=== PATIENT | female | born 1930 | race Caucasian/White ===

== ENCOUNTER 2019-02-10 19:30 | Outpatient (CLI) | payer MEDICARE | END 2019-02-10 19:31 | disposition home or self-care (01) | LOC: SLEEPLAB 19:30 | PROVIDERS: ATTEND Family Medicine | DX: G47.33 Obstructive sleep apnea (adult) (pediatric) (principal); G51.9 Disorder of facial nerve, unspecified; G47.10 Hypersomnia, unspecified; G47.9 Sleep disorder, unspecified; R53.83 Other fatigue; R06.83 Snoring; F41.8 Other specified anxiety disorders; G47.00 Insomnia, unspecified; I10 Essential (primary) hypertension; G47.61 Periodic limb movement disorder | CPT/HCPCS: 95810 ==

== ENCOUNTER 2019-03-15 20:30 | Outpatient (CLI) | payer MEDICARE | END 2019-03-15 20:31 | disposition home or self-care (01) | LOC: SLEEPLAB 20:30 | PROVIDERS: ATTEND Family Medicine | DX: G47.33 Obstructive sleep apnea (adult) (pediatric) (principal); F51.9 Sleep disorder not due to a substance or known physiological condition, unspecified; G47.10 Hypersomnia, unspecified; G47.9 Sleep disorder, unspecified; R53.83 Other fatigue; R06.83 Snoring; F41.8 Other specified anxiety disorders; I10 Essential (primary) hypertension; Z72.821 Inadequate sleep hygiene; E66.9 Obesity, unspecified; Z68.28 Body mass index [BMI] 28.0-28.9, adult | CPT/HCPCS: 95811 ==

== ENCOUNTER 2020-10-07 14:40 | Outpatient (CLI) | payer MEDICARE ==
--- NOTE | 2020-10-07 15:09 | RAD ---
Exam:3 views left shoulder HISTORY: Acute pain. Patient fell 2 weeks ago. COMPARISON: None FINDINGS: All degenerative change, acromioclavicular joint space. No fracture or dislocation. IMPRESSION: No fracture or dislocation
--- NOTE | 2020-10-07 15:10 | RAD ---
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 There is lower lumbar spi ne disc space narrowing and lateral osteophyte formation. 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 No acute fracture or evidence of dislocation. IMPRESSION: No acute fracture or dislocation seen.
== END 2020-10-07 14:41 | disposition home or self-care (01) ==
LOC: BICRAD 14:40
PROVIDERS: ATTEND Family Medicine
DX: M25.512 Pain in left shoulder (principal); M25.552 Pain in left hip

== ENCOUNTER 2021-05-16 14:13 | Outpatient (CLI) | payer MEDICARE | END 2021-05-16 14:14 | disposition home or self-care (01) | LOC: BICRAD 14:13 | PROVIDERS: ATTEND Family Medicine | DX: M16.12 Unilateral primary osteoarthritis, left hip (principal) ==